=== PATIENT | male | born 2000 | race Caucasian/White ===

== ENCOUNTER 2020-05-07 11:34 | Emergency (ER) | payer MEDICAID, SELFPAY ==
[~2020-05-07] VITALS: Ht 172.7 cm; Wt 75.3 kg
[2020-05-07 11:49] VITALS: Ht 172.7 cm; Wt 75.3 kg
[2020-05-07 13:02] VITALS: BP 135/75
== END 2020-05-07 13:02 | disposition home or self-care (01) ==
LOC: ED 11:34
DX: R05 Cough (principal); R07.89 Other chest pain; R09.89 Other specified symptoms and signs involving the circulatory and respiratory systems; R53.83 Other fatigue; R51 Headache; Z20.828 Contact with and (suspected) exposure to other viral communicable diseases
CPT/HCPCS: U0003-CS